=== PATIENT | female | born 1980 | race Caucasian/White ===

== ENCOUNTER 2020-09-10 09:48 | Inpatient (IN) | payer BC, SELFPAY ==
[2020-09-10] MEDS ORDERED: ASPIRIN 81 MG CHEWABLE TABLET ONE ×2 (10:18→11:30)
--- NOTE | 2020-09-10 10:20 | RAD REPORT ---
EXAM DESCRIPTION: RAD - Chest Single View - 09/10/2020 10:07 am CLINICAL HISTORY: COUGH COMPARISON: May 2016 TECHNIQUE: AP portable chest image was obtained 09/10/2020 10:07 am . FINDINGS: Lungs are clear. Heart and vasculature are normal. No measurable pleural effusion and no p neumothorax. No acute bony abnormality seen. No acute aortic findings suspected. IMPRESSION: No acute cardiopulmonary process. No significant change from comparison.
[2020-09-10 10:22] LABS: Absolute Lymphocytes (CBC) 2.1 K/uL (0.7-4.9); Basophils % 0.3 % (0-1.3); Hematocrit 38.7 % (36.0-45.0); Lymphocytes % 15.6 % (15.3-44.8); MPV 9.1 fL (7.6-11.3); RBC Red Blood Cell Count 4.28 M/uL (3.86-4.86)
[2020-09-10 10:39] LABS: ALT/SGPT 21 U/L (12-78); AST/SGOT 16 U/L (15-37); Albumin 3.5 g/dL (3.4-5.0); Alkaline Phosphatase 65 U/L (45-117); BUN Blood Urea Nitrogen 8 mg/dL (7-18); Bicarbonate 25 mmol/L (21-32); Bilirubin Direct < 0.1 mg/dL (0-0.2); Bilirubin Total 0.2 mg/dL (0.2-1.0); Glucose Level 130 mg/dL (74-106); Magnesium 2.1 mg/dL (1.8-2.4); NT PRO-BNP 122 pg/mL (<125); Potassium 3.8 mmol/L (3.5-5.1); Protein, Total 7.1 g/dL (6.4-8.2); Sodium Level 137 mmol/L (136-145); Troponin (Emerg Dept Use Only) < 0.02 ng/mL (0.0-0.045)
--- NOTE | 2020-09-10 11:14 | EDPHYS ---
Physician Documentation [facility] Name: Jabari Heredia Age: 40 yrs Sex: Female : 1980 Arrival Date: 09/10/2020 Time: 09:49 Bed 20 Private MD: ED Physician Chandana Dykes HPI: 09/10 11:06 This 40 yrs old Female presents to ER via Ambulatory with complaints of Chest osvaldo Pain. 11:06 The patient or guardian reports chest pain that is located primarily in the substernal osvaldo area, anterior chest wall, left. The pain radiates to the left arm, the left shoulder. Associated signs and symptoms: Pertinent positives: shortness of breath. The chest pain is described as a heaviness. Modifying factors: The symptoms are alleviated by nothing. the symptoms are aggravated by nothing. Severity of pain: At its worst the pain was mild moderate in the emergency department the pain is unchanged. The patient has not experienced similar symptoms in the past. Historical: - Allergies: 09:59 No Known Allergies; bp - Home Meds: 09:59 phentermine 37.5 mg oral cap 1 cap once daily [Active]; Seroquel 25 mg Oral tab 1 tab bp nightly [Active]; - PMHx: 09:59 Gall Stones; miscarriages; bp - Immunization history:: Adult Immunizations up to date. - Social history:: Smoking status: Patient denies any tobacco usage or history of. - Family history:: not pertinent. ROS: 11:06 Constitutional: Negative for fever, chills, and weight loss, Eyes: Negative for injury, osvaldo pain, redness, and discharge, ENT: Negative for injury, pain, and discharge, Neck: Negative for injury, pain, and swelling, Respiratory: Negative for shortness of breath, cough, wheezing, and pleuritic chest pain, Abdomen/GI: Negative for abdominal pain, nausea, vomiting, diarrhea, and constipation, Back: Negative for injury and pain, : Negative for injury, bleeding, discharge, and swelling, MS/Extremity: Negative for injury and deformity, Skin: Negative for injury, rash, and discoloration, Neuro: Negative for headache, weakness, numbness, tingling, and seizure, Psych: Negative for depression, anxiety, suicide ideation, homicidal ideation, and hallucinations, Allergy/Immunology: Negative for hives, rash, and allergies, Endocrine: Negative for neck swelling, polydipsia, polyuria, polyphagia, and marked weight changes, Hematologic/Lymphatic: Negative for swollen nodes, abnormal bleeding, and unusual bruising. 11:06 Cardiovascular: Positive for chest pain, of the chest. Exam: 11:06 Constitutional: This is a well developed, well nourished patient who is awake, alert, osvaldo and in no acute distress. Head/Face: Normocephalic, atraumatic. Eyes: Pupils equal round and reactive to light, extra-ocular motions intact. Lids and lashes normal. Conjunctiva and sclera are non-icteric and not injected. Cornea within normal limits. Periorbital areas with no swelling, redness, or edema. ENT: Nares patent. No nasal discharge, no septal abnormalities noted. Tympanic membranes are normal and external auditory canals are clear. Oropharynx with no redness, swelling, or masses, exudates, or evidence of obstruction, uvula midline. Mucous membranes moist. Neck: Trachea midline, no thyromegaly or masses palpated, and no cervical lymphadenopathy. Supple, full range of motion without nuchal rigidity, or vertebral point tenderness. No Meningismus. Chest/axilla: Normal chest wall appearance and motion. Nontender with no deformity. No lesions are appreciated. Cardiovascular: Regular rate and rhythm with a normal S1 and S2. No gallops, murmurs, or rubs. Normal PMI, no JVD. No pulse deficits. Respiratory: Lungs have equal breath sounds bilaterally, clear to auscultation and percussion. No rales, rhonchi or wheezes noted. No increased work of breathing, no retractions or nasal flaring. Abdomen/GI: Soft, non-tender, with normal bowel sounds. No distension or tympany. No guarding or rebound. No evidence of tenderness throughout. Back: No spinal tenderness. No costovertebral tenderness. Full range of motion. Skin: Warm, dry with normal turgor. Normal color with no rashes, no lesions, and no evidence of cellulitis. MS/ Extremity: Pulses equal, no cyanosis. Neurovascular intact. Full, normal range of motion. Neuro: Awake and alert, GCS 15, oriented to person, place, time, and situation. Cranial nerves II-XII grossly intact. Motor strength 5/5 in all extremities. Sensory grossly intact. Cerebellar exam normal. Normal gait. Psych: Awake, alert, with orientation to person, place and time. Behavior, mood, and affect are within normal limits. 11:06 Musculoskeletal/extremity: DVT Exam: No signs of deep vein thrombosis. no pain, no swelling, no tenderness, negative Homans' sign noted on exam, no appreciated bluish discoloration, no erythema, no increased warmth. 11:38 ECG was reviewed by the Attending Physician. osvaldo Vital Signs: 09:58 BP 108 / 58; Pulse 81; Resp 15; Temp 98; Pulse Ox 99% ; Weight 86.18 kg; Height 5 ft. 5 bp in. (165.10 cm); 11:12 BP 103 / 46; Pulse 64; Resp 14; Pulse Ox 96% ; bp 12:15 BP 116 / 64; Pulse 70; Resp 12; Pulse Ox 100% ; bp 13:15 BP 108 / 58; Pulse 70; Resp 16; Temp 98; Pulse Ox 100% ; bp 09:58 Body Mass Index 31.62 (86.18 kg, 165.10 cm) bp MDM: 09:51 Patient medically screened. [facility] 11:09 Differential diagnosis: abnormal EKG, acute pericarditis, anxiety, coronary artery osvaldo disease chest wall pain, congestive heart failure esophagitis, hiatal hernia, pancreatitis, pulmonary embolus, stable angina, unstable angina. HEART Score: History: Moderately Suspicious (1), ECG: Non specific repolarization disturbance / LBTB / PM (1), Age: < or = 45 years (0), Risk Factors: No Risk Factors Known (0), Troponin: < or = 1 x Normal Limit (0). The patient's deep vein thrombosis risk score was calculated as follows: Total Score: 1 to 2 points. This patient was found to be at moderate risk for a deep vein thrombosis by using the Well's assessment criteria. The patient's pulmonary embolism risk score was calculated as follows: Total Score: 0-2 points. This patient was found to be at low risk for a pulmonary embolism by using the Well's assessment criteria. ERLIN Risk Score: TOTAL SCORE = 0. Data reviewed: vital signs, nurses notes, lab test result(s), EKG, radiologic studies, CT scan, plain films. Data interpreted: quality assurance monitor final: rate is 81 beats/min, rhythm is normal sinus rhythm, Pulse oximetry: on room air is 99 %. Test interpretation: by ED physician or midlevel provider: ECG, plain radiologic studies. Counseling: I had a detailed discussion with the patient and/or guardian regarding: the historical points, exam findings, and any diagnostic results supporting the discharge/admit diagnosis, lab results, radiology results, the need for further work-up and treatment in the hospital. 09/10 09:53 Order name: Basic Metabolic Panel; Complete Time: 11:[address] [facility] 09/10 09:53 Order name: CBC with Diff; Complete Time: 11:[address] [facility] 09/10 09:53 Order name: LFT's; Complete Time: 11:[address] [facility] 09/10 09:53 Order name: Magnesium; Complete Time: 11:[address] [facility] 09/10 09:53 Order name: NT PRO-BNP; Complete Time: 11:[address] [facility] 09/10 09:53 Order name: Troponin (emerg Dept Use Only); Complete Time: 11:[address] [facility] 09/10 09:53 Order name: XRAY Chest (1 view); Complete Time: 11:[address] [facility] 09/10 09:53 Order name: EKG; Complete Time: 09:[address] [facility] 09/10 11:45 Order name: Urine Dipstick--Ancillary (enter results) 09/10 11:45 Order name: Urine --Ancillary (enter results) 09/10 09:53 Order name: Cardiac monitoring; Complete Time: 10:[address] [facility] 09/10 09:53 Order name: EKG - Nurse/Tech; Complete Time: 10:[address] [facility] 09/10 09:53 Order name: IV Saline Lock; Complete Time: 13:[address] [facility] 09/10 09:53 Order name: Labs collected and sent; Complete Time: 13:[address] [facility] 09/10 09:53 Order name: O2 Per Protocol; Complete Time: 10:[address] [facility] 09/10 09:53 Order name: O2 Sat Monitoring; Complete Time: 10: [facility] 09/10 09:53 Order name: Urine Dipstick-Ancillary (obtain specimen); Complete Time: 12:[address] [facility] 09/10 09:53 Order name: Urine Test (obtain specimen); Complete Time: 12:[address] [facility] EC:38 Rate is 83 beats/min. Rhythm is regular. QRS [place] is Normal. TN interval is normal. QRS osvaldo interval is normal. QT interval is normal. No Q waves. T waves are Normal. No ST changes noted. Clinical impression: NSR w/ Non-specific ST/T Changes and No evidence of ischemia. Interpreted by me. Reviewed by me. Administered Medications: 10:05 Drug: Aspirin 162 mg Route: PO; bp 12:36 Follow up: Response: No adverse reaction bp 11:10 Drug: Lovenox 1 mg/kg Route: Sub-Q; Site: right lower abdomen; bp 12:36 Follow up: Response: No adverse reaction bp 11:10 Drug: Lopressor (metoprolol TARTRATE) 50 mg Route: PO; bp 12:36 Follow up: Response: No adverse reaction bp 11:10 Drug: Pepcid 20 mg Route: IVP; Site: right antecubital; bp 12:34 Follow up: Response: No adverse reaction bp Disposition: 09/10/20 11:13 Hospitalization ordered by Mau Dhillon for Observation. Preliminary diagnosis are Chest pain, unspecified, Essential (primary) hypertension, Tobacco abuse counseling, Tobacco use. - Bed requested for Telemetry/MedSurg (observation). - Status is Observation. bp - Condition is Stable. - Problem is new. - Symptoms have improved. Signatures: Dispatcher [employer] EDYani Rodriguez RN RN kl Anderson, Corey, MD MD cha Peltier, Brian, RN RN bp Corrections: (The following items were deleted from the chart) 11:20 11:13 Hospitalization Ordered by Mau Dhillon for Observation. Preliminary diagnosis osvaldo is Chest pain, unspecified; Essential (primary) hypertension. Bed requested for Telemetry/MedSurg (observation). Status is Observation. Condition is Stable. Problem is new. Symptoms have improved. osvaldo 12:31 11:20 09/10/2020 11:13 Hospitalization Ordered by Mau Dhillon for Observation. kl Preliminary diagnosis is Chest pain, unspecified; Essential (primary) hypertension; Tobacco abuse counseling; Tobacco use. Bed requested for Telemetry/MedSurg (observation). Status is Observation. Condition is Stable. Problem is new. Symptoms have improved. osvaldo 13:33 12:31 09/10/2020 11:13 Hospitalization Ordered by Mau Dhillon for Observation. bp Preliminary diagnosis is Chest pain, unspecified; Essential (primary) hypertension; Tobacco abuse counseling; Tobacco use. Bed requested for Telemetry/MedSurg (observation). Status is Observation. Condition is Stable. Problem is new. Symptoms have improved. kl
--- NOTE | 2020-09-10 11:14 | ER ---
Nurse's Notes [facility] Name: Jabari Heredia Age: 40 yrs Sex: Female : 1980 Arrival Date: 09/10/2020 Time: 09:49 Bed 20 Private MD: Diagnosis: Chest pain, unspecified;Essential (primary) hypertension;Tobacco abuse counseling;Tobacco use Presentation: 09/10 09:58 Chief complaint: Patient states: SUBSTERNAL CP x4 HOURS. Coronavirus screen: At this bp time, the client does not indicate any symptoms associated with coronavirus-19. Ebola Screen: No symptoms or risks identified at this time. Initial Sepsis Screen: Does the patient meet any 2 criteria? No. Patient's initial sepsis screen is negative. Does the patient have a suspected source of infection? No. Patient's initial sepsis screen is negative. Risk Assessment: Do you want to hurt yourself or someone else? Patient reports no desire to harm self or others. Onset of symptoms was September 10, 2020 at 05:30. 09:58 Method Of Arrival: Ambulatory bp 09:58 Acuity: HAKAN 3 bp Triage Assessment: 09:59 General: Appears distressed, uncomfortable, obese, Behavior is cooperative, appropriate bp for age, anxious. Pain: Complains of pain in chest. EENT: No deficits noted. Neuro: No deficits noted. Cardiovascular: Reports chest pain, Rhythm is sinus rhythm. Respiratory: Reports shortness of breath pain with respiration. GI: No signs and/or symptoms were reported involving the gastrointestinal system. : No signs and/or symptoms were reported regarding the genitourinary system. Derm: No deficits noted. Musculoskeletal: No deficits noted. Historical: - Allergies: 09:59 No Known Allergies; bp - Home Meds: 09:59 phentermine 37.5 mg oral cap 1 cap once daily [Active]; Seroquel 25 mg Oral tab 1 tab bp nightly [Active]; - PMHx: 09:59 Gall Stones; miscarriages; bp - Immunization history:: Adult Immunizations up to date. - Social history:: Smoking status: Patient denies any tobacco usage or history of. - Family history:: not pertinent. Screenin:00 Abuse screen: Denies threats or abuse. Denies injuries from another. Nutritional bp screening: No deficits noted. Tuberculosis screening: No symptoms or risk factors identified. Fall Risk None identified. Assessment: 10:00 General: SEE TRIAGE NOTE. bp 11:30 Reassessment: Patient appears in no apparent distress at this time. Patient is alert, bp oriented x 3, equal unlabored respirations, skin warm/dry/pink. ADMIT INITIATED. Pain: Denies pain. Cardiovascular: Rhythm is sinus rhythm. 12:28 Reassessment: Patient appears in no apparent distress at this time. Patient is alert, bp oriented x 3, equal unlabored respirations, skin warm/dry/pink. ADMIT IN PROCESS. Vital Signs: 09:58 BP 108 / 58; Pulse 81; Resp 15; Temp 98; Pulse Ox 99% ; Weight 86.18 kg; Height 5 ft. 5 bp in. (165.10 cm); 11:12 BP 103 / 46; Pulse 64; Resp 14; Pulse Ox 96% ; bp 12:15 BP 116 / 64; Pulse 70; Resp 12; Pulse Ox 100% ; bp 13:15 BP 108 / 58; Pulse 70; Resp 16; Temp 98; Pulse Ox 100% ; bp 09:58 Body Mass Index 31.62 (86.18 kg, 165.10 cm) bp ED Course: 09:49 Patient arrived in ED. ag5 09:51 Chandana Dykes MD is Attending Physician. osvaldo 09:58 Geoffrey Chong, OVI is Primary Nurse. bp 09:59 Triage completed. bp 09:59 Arm band placed on. bp 10:00 Patient has correct armband on for positive identification. Placed in gown. Bed in low bp position. Call light in reach. Side rails up X2. property assessment monitor on. Pulse ox on. NIBP on. 10:07 XRAY Chest (1 view) In Process Unspecified. EDMS 10:10 Inserted saline lock: 20 gauge in right antecubital area, using aseptic technique. bp 11:12 Mau Dhillon is Hospitalizing Provider. osvaldo 13:20 No provider procedures requiring assistance completed. Patient admitted, IV remains in bp place. Patient maintains SpO2 saturation greater than 95% on room air. Administered Medications: 10:05 Drug: Aspirin 162 mg Route: PO; bp 12:36 Follow up: Response: No adverse reaction bp 11:10 Drug: Lovenox 1 mg/kg Route: Sub-Q; Site: right lower abdomen; bp 12:36 Follow up: Response: No adverse reaction bp 11:10 Drug: Lopressor (metoprolol TARTRATE) 50 mg Route: PO; bp 12:36 Follow up: Response: No adverse reaction bp 11:10 Drug: Pepcid 20 mg Route: IVP; Site: right antecubital; bp 12:34 Follow up: Response: No adverse reaction bp Outcome: 11:13 Decision to Hospitalize by Provider. osvaldo 13:20 Admitted to Med/surg accompanied by tech, family with patient, via wheelchair, room bp 210, with chart, Report called to BRO DIOR 13:20 Condition: stable 13:20 Instructed on the need for admit. 13:33 Patient left the ED. bp Signatures: Dispatcher [employer] EDChandana Lopez MD MD cha Peltier, Brian, RN RN Kateryna Matias ag5
[2020-09-10] MEDS ORDERED: ENOXAPARIN 100 MG/ML SYR SQ ONE (11:30)
[2020-09-10] MEDS ORDERED: FAMOTIDINE 20 MG/2 ML VIAL IV ONE (11:30)
[2020-09-10] MEDS ORDERED: METOPROLOL TAR 50 MG TAB ONE (11:41)
[2020-09-10 12:14] LABS: Urine Blood 1+ (NEG); Urine Glucose NEGATIVE (NEG); Urine Protein NEGATIVE (NEG)
[2020-09-10 13:43] VITALS: O2SAT 100
[2020-09-10] MEDS ORDERED: NITROGLYCERIN 0.4 MG/TAB SL PRN (13:53)
[2020-09-10 14:11] VITALS: BMI 31.6
--- NOTE | 2020-09-10 14:46 | P.HP ---
Certification for Inpatient Patient admitted to: Observation With expected LOS: <2 Midnights Practitioner: I am a practitioner with admitting privileges, knowledge of patient current condition, hospital course, and medical plan of care. Services: Services provided to patient in accordance with Admission requirements found in Title 42 Section 412.3 of the Code of Federal Regulations Patient History Date of Service: 09/10/20 Reason for admission: Chest pain History of Present Illness: 40-year-old obese lady presented to the emergency department complaining of chest pain of onset this morning. Patient states the chest pain occurred at rest, intermittent, located in the anterior chest, radiating to involve the left arm, no known relieving or aggravating factors. She stated aspirin did not help the pain. His EKG in the ED showed sinus rhythm and nonspecific ST-T changes. Initial troponin is negative. Chest x-ray is unremarkable. Patient risk factors include smoking. She is placed under observation for ACS rule out. Allergies No Known Drug Allergies Allergy (Verified 09/10/20 13:55) Unknown No Known Allergies Allergy (Uncoded 09/10/20 13:55) Unknown Home Medications: Phentermine HCl 37.5 mg PO DAILY 09/10/20 Quetiapine Fumarate [Seroquel] 25 mg PO BEDTIME 09/10/20 - Past Medical/Surgical History Diabetic: No -: carpel tunnel -: gallstones -: dehydration -: UTI -: C-Sectionx2 -: tonsillectomy -: adenoid removal -: gall bladder sx - Family History Father -: Cancer - Social History Smoking Status: Current every day smoker Alcohol use: No CD- Drugs: No Caffeine use: Yes Place of Residence: Home Review of Systems Other: Patient denied any shortness of breath, denied any cough of fever. Except as documented, all other systems reviewed and negative. Physical Examination - Vital Signs Temperature: 98 F Blood Pressure: 108/58 Pulse: 70 Respirations: 16 - Physical Exam General: Alert, In no apparent distress, Oriented x3 HEENT: Atraumatic, Normocephalic, Mucous membr. moist/pink, Sclerae nonicteric Neck: Supple, JVD not distended Respiratory: Clear to auscultation bilaterally, Normal air movement, Other (Anterior chest wall is tender to palpation.) Cardiovascular: No edema, Regular rate/rhythm, Normal S1 S2 Capillary refill: <2 Seconds Gastrointestinal: Normal bowel sounds, Soft and benign, Non-distended, No tenderness Musculoskeletal: No swelling, No erythema Integumentary: No rashes, No tenderness/swelling Neurological: Normal speech, Normal strength at 5/5 x4 extr, Normal affect - Studies Laboratory Data (last 24 hrs) 09/10/20 10:10: WBC 13.4 H, Hgb 13.2, Hct 38.7, Plt Count 303 09/10/20 10:10: Sodium 137, Potassium 3.8, BUN 8, Creatinine 0.76, Glucose 130 H, Magnesium 2.1, Total Bilirubin 0.2, AST 16, ALT 21, Alkaline Phosphatase 65 Assessment and Plan - Problems (Diagnosis) (1) Chest pain Current Visit: Yes Status: Acute (2) Tobacco use Current Visit: Yes Status: Acute (3) Obesity Current Visit: Yes Status: Acute - Plan Place under observation. Trend troponin Will start baby aspirin Check lipid profile. NTG p.r.n. - Advance Directives Does patient have a Living Will: No Does patient have a Durable POA for Healthcare: No
[2020-09-10] MEDS ORDERED: INFLUENZA VACCINE (for 3y+) 0.5 ML DOSE IMVAC ONE (15:00)
[2020-09-10 15:09] LABS: HDL Cholesterol 36 mg/dL (40-60); LDL Cholesterol, Calculated 58 (<130); Troponin I < 0.02 ng/mL (0.0-0.045)
[2020-09-10] MEDS: PANTOPRAZOLE 40MG TABLET PO SCH (15:30)
[2020-09-10] MEDS ORDERED: LORAZEPAM 0.5 MG TABLET PO ONE (16:00)
[2020-09-10] MEDS ORDERED: QUETIAPINE 25 MG TAB PO SCH (21:00)
--- NOTE | 2020-09-11 07:27 | EKG ---
Test Date: 2020-09-10 Test Time: 09:56:57 Deaf Interpreter: CINTHIA MEASUREMENT RESULTS: Intervals: Rate: 83 ND: 110 QRSD: 78 QT: 370 QTc: 434 Delong: P: 41 ND: 110 QRS: 33 T: 87 INTERPRETIVE STATEMENTS: Sinus rhythm with short ND Cannot rule out Anterior infarct, age undetermined Abnormal ECG Compared to ECG 05/30/2016 05:30:52 Short ND interval now present Myocardial infarct finding now present Sinus bradycardia no longer present Electronically Signed On 09-11-20 07:25:00 CDT by Jamir Higginbotham
[2020-09-11] MEDS: PANTOPRAZOLE 40MG TABLET PO SCH (07:30)
[2020-09-11] MEDS ORDERED: ASPIRIN EC 81 MG TAB PO SCH (09:00)
[2020-09-11] MEDS ORDERED: ENOXAPARIN 40 MG/0.4 ML SQ SCH (09:00)
[2020-09-11] MEDS ORDERED: REGADENOSON 0.4 MG/5 ML SYR IV ONE (09:01)
--- NOTE | 2020-09-11 11:32 | RAD REPORT ---
EXAM DESCRIPTION: NM - Rest Stress Cardiac Imaging - 09/11/2020 11:21 am CLINICAL HISTORY: Chest pain. COMPARISON: None. TECHNIQUE: The patient was administered 10.9 millicuries of Tc 99m Sestamibi prior to resting SPECT imaging of the heart. The patient was then administered 30.6 mCi of Tc 99m Sestamibi following exercise or pharmacologic st ress. Multiplanar SPECT images were reviewed. FINDINGS: There is uniformity of radiotracer uptake involving the entire left ventricular myocardiu m on rest and stress images. The left ventricular ejection fraction equals 65% IMPRESSION: Negative for a myocardial perfusion defect
[2020-09-11] MEDS ORDERED: ACETAMINOPHEN 500 MG TAB PO PRN (11:57)
--- NOTE | 2020-09-11 12:41 | P.DS ---
Admission Date: 09/11/20 Discharge Date: 09/11/20 Disposition: ROUTINE DISCHARGE Discharge Condition: FAIR Reason for Admission: Chest pain Consultations: None Procedures: None - Problems (1) Chest pain Current Visit: Yes Status: Acute (2) Tobacco use Current Visit: Yes Status: Acute (3) Obesity Current Visit: Yes Status: Acute Brief History of Present Illness: 40-year-old obese lady presented to the emergency department complaining of chest pain of onset this morning. Patient states the chest pain occurred at rest, intermittent, located in the anterior chest, radiating to involve the left arm, no known relieving or aggravating factors. She stated aspirin did not help the pain. His EKG in the ED showed sinus rhythm and nonspecific ST-T changes. Initial troponin is negative. Chest x-ray is unremarkable. Patient risk factors include smoking. She is placed under observation for ACS rule out. Hospital Course: Troponin trended came back negative. Nuclear stress test was done which did not show any stress-induced ischemia. ACS has been ruled out. Patient was also treated for acid reflux with Protonix. She will be discharged with oral protonix. Her triglyceride level was high LDL within normal limit. Diet modification advised. Vital Signs/Physical Exam: Temp Pulse Resp BP Pulse Ox 97.7 F 87 18 120/64 97 09/11/20 08:00 09/11/20 08:00 09/11/20 08:00 09/11/20 08:00 09/11/20 08:00 General: Alert, In no apparent distress Respiratory: Clear to auscultation bilaterally, Normal air movement Cardiovascular: No edema, Regular rate/rhythm, Normal S1 S2 Gastrointestinal: Normal bowel sounds, Soft and benign, No tenderness Musculoskeletal: No swelling, No erythema Integumentary: No rashes Neurological: Other (Nonfocal.) Laboratory Data at Discharge: WBC 13.4 K/uL (4.3-10.9) H 09/10/20 10:10 Hgb 13.2 g/dL (12.0-15.0) 09/10/20 10:10 Hct 38.7 % (36.0-45.0) 09/10/20 10:10 Plt Count 303 K/uL (152-406) 09/10/20 10:10 Sodium 137 mmol/L (136-145) 09/10/20 10:10 Potassium 3.8 mmol/L (3.5-5.1) 09/10/20 10:10 BUN 8 mg/dL (7-18) 09/10/20 10:10 Creatinine 0.76 mg/dL (0.55-1.3) 09/10/20 10:10 Glucose 130 mg/dL (74-106) H 09/10/20 10:10 Magnesium 2.1 mg/dL (1.8-2.4) 09/10/20 10:10 Total Bilirubin 0.2 mg/dL (0.2-1.0) 09/10/20 10:10 AST 16 U/L (15-37) 09/10/20 10:10 ALT 21 U/L (12-78) 09/10/20 10:10 Alkaline Phosphatase 65 U/L (45-117) 09/10/20 10:10 Troponin I < 0.02 ng/mL (0.0-0.045) 09/10/20 17:59 Triglycerides 319 mg/dL (<150) H 09/10/20 14:30 Cholesterol 158 mg/dL (<200) 09/10/20 14:30 HDL Cholesterol 36 mg/dL (40-60) L 09/10/20 14:30 Cholesterol/HDL Ratio 4.39 09/10/20 14:30 Home Medications: Phentermine HCl 37.5 mg PO DAILY 09/10/20 Quetiapine Fumarate [Seroquel] 25 mg PO BEDTIME 09/10/20 Pantoprazole [Protonix Tab*] 40 mg PO DAILY #30 tab 09/11/20 New Medications: Pantoprazole [Protonix Tab*] 40 mg PO DAILY #30 tab Diet: AHA Activity: Ad elena Followup: J LUIS SALES [Primary Care Provider] - 1-2 Weeks Time spent managing pt's care (in minutes): 36
[2020-09-11 13:33] VITALS: BP 111/73; TEMP 97.6
--- NOTE | 2020-09-11 14:26 | TREADPHA ---
DX: CHEST PAIN Date of Study: 09/11/2020 Ht: 5' 5 " Wt: 190 lb 0 oz Consulting Physician: MISTY MEDICATIONS: ASPIRIN, LOVENOX, NITROSTAT, PROTONIX, SEROQUEL HISTORY: 40 YEAR OLD MALE WITH COMPLAINTS OF CHEST PAIN. PATIENT SMOKES HALF A PACK OF CIGARETTES, NON-DRINKER, OCCASIONAL MARIJUANA. PHYSICIAL EXAMINATION: RESTING B.P.: 151/56 RESTING H.R.: 50 RESTING EKG: NORMAL WALL MOTION PROTOCOL: PHARMACOLOGIC EXERCISE TIME: 3:30 B.P. AT PEAK STRESS: 150/47 IMPRESSION: LEXISCAN INJECTED, FOLLOWED BY CARDIOLITE PER PROTOCOL. SEE NUCLEAR MEDICINE REPORT. NO SUPRAVENTRICULAR TACHYCARDIA, VENTRICULAR TACHYCARDIA, PREMATURE ATRIAL COMPLEXES, PREMATURE VENTRICULAR COMPLEXES. PATIENT REPORTED CHEST PRESSURE TWO OUT OF TEN ON PAIN SCALE THROUGHOUT PROCEDURE. NO ELECTROCARDIOGRAM CHANGES WITH STRESS.
== END 2020-09-11 15:07 | disposition home or self-care (01) | DRG 313 ==
LOC: ER 09:48 → ERHOLD 12:11 → 2ND 13:19 → OBSVTOIN 09-11 07:50
PROVIDERS: ADMIT Internal Medicine; ATTEND Internal Medicine
DX: R07.9 Chest pain, unspecified (principal); K21.9 Gastro-esophageal reflux disease without esophagitis; F17.200 Nicotine dependence, unspecified, uncomplicated; E66.9 Obesity, unspecified; Z68.31 Body mass index [BMI] 31.0-31.9, adult; Z79.899 Other long term (current) drug therapy; Z20.828 Contact with and (suspected) exposure to other viral communicable diseases
CPT/HCPCS: 36415; 71045; 78452; 80048; 80061; 80076; 81003; 81025; 83735; 83880; 84484; 85025; 93005; 93017; 96372; 96374; 99285; A9500; G0378; J1650; J2785; U0002